=== PATIENT | male | born 1985 | race Caucasian/White ===

== ENCOUNTER 2016-07-12 12:54 | Outpatient (CLI) | payer BC ==
[2016-07-12 13:28] LABS: BUN/Creatinine Ratio 17.27; Calcium 7.4 mg/dL (8.4-10.2); Chloride 111.1 mmol/L (98-107); Potassium 5.2 mmol/L (3.6-5.0)
== END 2016-07-12 12:55 | disposition home or self-care (01) ==
LOC: LAB 12:54
PROVIDERS: ATTEND Internal Medicine Nephrology
DX: N18.3 Chronic kidney disease, stage 3 (moderate) (principal); E87.5 Hyperkalemia
CPT/HCPCS: 36415; 80048

== ENCOUNTER 2016-10-11 16:04 | Emergency (ER) | payer BC | END 2016-10-11 16:45 | disposition left against medical advice (07) | LOC: ED 16:04 | DX: Z53.21 Procedure and treatment not carried out due to patient leaving prior to being seen by health care provider (principal) ==

== ENCOUNTER 2019-05-23 18:35 | Emergency (ER) | payer BC ==
--- NOTE | 2019-05-23 21:00 | XRay Report ---
RIGHT FOOT 2 VIEWS INDICATION: PAIN/SWELLING R/T INJURY. COMPARISON: No relevant prior imaging study available. FINDINGS: There is fracture through the base of the fifth metatarsal. The fracture is approximately 2.4 cm from the proximal tip of the fifth metatarsal. Concerning for Barrett-type fracture. No additional fracture s are identified. IMPRESSION: 1. Barrett fracture at the proximal fifth metatarsal. Additional views would be useful to assess for a dditional fractures at the bases of the metatarsals. Signer Name: Milton Quinones MD Signed: 05/23/2019 8:56 PM Workstation Name: [id number]
[2019-05-23] MEDS ORDERED: HYDROcodone/ACETAMINOPHEN 5-325 MG TAB PO ONE (21:12)
--- NOTE | 2019-05-23 21:19 | Emergency Department Report ---
ED Lower Extremity HPI - General Chief Complaint: Extremity Injury, Lower Stated Complaint: TWISTED ANKLE/SWOLLEN Time Seen by Provider: 05/23/19 20:35 Source: patient Mode of arrival: Wheelchair Limitations: No Limitations - History of Present Illness Initial Comments: Mr. Quinones is a 33 y/o male who presents for right foot pain and swelling. Pt s/p fall and twist. pain is 8/10 moderate right lateral foot swelling. pt is non-weight bearing. pain is exacerbated by attempted weight bearing, pain is relieved by nothing, there is no deformity, no abrasion , laceration, or bleeding. MD Complaint: foot injury Onset/Timin -: days(s) Injury: Foot: Right (right lateral foot pain and swelling ) Type of Injury: eversion Place: street/outdoors Severity: moderate Severity scale (0 -10): 5 Improves With: nothing Worsens With: weight bearing, movement, palpation Context: fall Associated Symptoms: snap/pop sensation, swelling, tingling, unable to bear weight. denies: numbness - Related Data Previous Rx's Medication Instructions Recorded Last Taken Type HYDROcodone/APAP 5-325 [Pyote 1 each PO Q6HR PRN #12 tablet 05/23/19 Unknown Rx 5-325 mg TAB] Allergies Allergy/AdvReac Type Severity Reaction Status Date / Time No Known Allergies Allergy Unverified 05/23/19 19:40 ED Review of Systems ROS: Stated complaint: TWISTED ANKLE/SWOLLEN Other details as noted in HPI Constitutional: denies: chills, fever Eyes: denies: eye pain, eye discharge, vision change ENT: denies: ear pain, throat pain Respiratory: denies: cough, shortness of breath, wheezing Cardiovascular: denies: chest pain, palpitations Endocrine: no symptoms reported Gastrointestinal: denies: abdominal pain, nausea, diarrhea Genitourinary: denies: urgency, dysuria Musculoskeletal: joint swelling Skin: denies: rash, lesions Neurological: denies: headache, weakness, paresthesias Psychiatric: denies: anxiety, depression Hematological/Lymphatic: denies: easy bleeding, easy bruising ED Past Medical Hx - Past Medical History Previous Medical History?: Yes Hx Hypertension: Yes Hx Diabetes: Yes - Surgical History Past Surgical History?: No - Social History Smoking Status: Never Smoker Substance Use Type: None - Medications Home Medications: Home Medications Medication Instructions Recorded Confirmed Last Taken Type HYDROcodone/APAP 5-325 [Pyote 1 each PO Q6HR PRN #12 tablet 05/23/19 Unknown Rx 5-325 mg TAB] ED Physical Exam - General Limitations: No Limitations General appearance: alert, in no apparent distress - Head Head exam: Present: atraumatic, normocephalic - Eye Eye exam: Present: normal appearance, PERRL, EOMI - ENT ENT exam: Present: mucous membranes moist - Neck Neck exam: Present: normal inspection, full ROM. Absent: tenderness, lymphadenopathy - Respiratory Respiratory exam: Present: normal lung sounds bilaterally. Absent: respiratory distress, chest wall tenderness - Cardiovascular Cardiovascular Exam: Present: regular rate, normal rhythm, normal heart sounds. Absent: systolic murmur, diastolic murmur, rubs, gallop - GI/Abdominal GI/Abdominal exam: Present: soft, tenderness, normal bowel sounds. Absent: bruit, hernia - Rectal Rectal exam: Present: deferred - Extremities Exam Extremities exam: Present: normal inspection, tenderness (right dorsal lateral foot , no ecchymosis , no deformity, distal pulses intact pain with flexion and extension), normal capillary refill. Absent: pedal edema, joint swelling, calf tenderness - Expanded Lower Extremity Exam Right Foot/Toe exam: Present: tenderness, swelling, tenderness at base of 5th metatarsal. Absent: abrasion, laceration, ecchymosis, deformity, crepidus, dislocation, erythema, amputation, puncture wound, foreign body, calcaneal tenderness, nail avulsion, subungual hematoma Neuro vascular tendon exam: Absent: pulse deficit, abnormal cap refill, motor deficit, sensory deficit, tendon deficit Gait: Positive: unable to bear weight - Back Exam Back exam: Present: normal inspection, full ROM. Absent: tenderness, CVA tenderness (R), CVA tenderness (L), vertebral tenderness - Neurological Exam Neurological exam: Present: alert, oriented X3, CN II-XII intact, normal gait, reflexes normal. Absent: motor sensory deficit - Psychiatric Psychiatric exam: Present: normal affect, normal mood - Skin Skin exam: Present: warm, dry, intact, normal color. Absent: rash ED Course Vital Signs 05/23/19 05/23/19 05/23/19 18:38 18:45 19:00 Pulse Rate 93 H 89 93 H Respiratory 16 22 19 Rate Blood Pressure 149/105 151/101 135/74 O2 Sat by Pulse 97 98 97 Oximetry 05/23/19 19:15 Pulse Rate 93 H Respiratory 17 Rate Blood Pressure 157/106 O2 Sat by Pulse 98 Oximetry ED Lower Extremity MDM - Radiology Data Radiology results: report reviewed, image reviewed Findings [facility] [address] [place] [address] XRay Report Signed Patient: HAZEL ELI MR#: [id number] : 1985 Acct:[id number] Age/Sex: 33 / M ADM Date: 05/23/19 Loc: ED Attending Dr: Ordering Physician: IRIS FRANCISCO MD Date of Service: 05/23/19 Procedure(s): XR foot 2V RT Accession Number(s): [id number] cc: IRIS FRANCISCO MD Fluoro Time In Minutes: RIGHT FOOT 2 VIEWS INDICATION: PAIN/SWELLING R/T INJURY. COMPARISON: No relevant prior imaging study available. FINDINGS: There is fracture through the base of the fifth metatarsal. The fracture is approximately 2.4 cm from the proximal tip of the fifth metatarsal. Concerning for Barrett-type fracture. No additional fractures are identified. IMPRESSION: 1. Barrett fracture at the proximal fifth metatarsal. Additional views would be useful to assess for additional fractures at the bases of the metatarsals. Signer Name: Milton Quinones MD Signed: 05/23/2019 8:56 PM Workstation Name: [id number] Transcribed By: JAMES Dictated By: Milton Quinones MD Electronically Authenticated By: Milton Quinones MD Signed Date/Time: 05/23/192055 DD/ 53 TD/TT: - Medical Decision Making This is a closed right 5th metatarsal fracture nondisplaced. distal pulses intact. splint posterior short leg and crutches. splint check complete spacing is appropriate. plan: dc to home in stable condition rx hydrocodone , follow up with orthopedics in 2-3 days, pt verbalized agreement and understanding of discharge plan. Critical care attestation.: If time is entered above; I have spent that time in minutes in the direct care of this critically ill patient, excluding procedure time. ED Disposition Clinical Impression: Closed fracture of fifth metatarsal bone of right foot Qualifiers: Encounter type: initial encounter Fracture alignment: nondisplaced Qualified Code(s): S92.354A - Nondisplaced fracture of fifth metatarsal bone, right foot, initial encounter for closed fracture Disposition: TO HOME OR SELFCARE Is pt being admited?: No Does the pt Need Aspirin: No Condition: Stable Instructions: Foot Fracture in Adults (ED) Prescriptions: HYDROcodone/APAP 5-325 [Pyote 5-325 mg TAB] 1 each PO Q6HR PRN #12 tablet PRN Reason: Pain Referrals: MIGUEL ÁNGEL OLIVARES MD [Staff Physician] - 3-5 Days Forms: Work/School Release Form(ED) Time of Disposition: 22:33
[2019-05-23 22:53] VITALS: BP 167/72
== END 2019-05-23 22:52 | disposition home or self-care (01) ==
LOC: ED 18:35
DX: S92.354A Nondisplaced fracture of fifth metatarsal bone, right foot, initial encounter for closed fracture (principal); I10 Essential (primary) hypertension; E11.9 Type 2 diabetes mellitus without complications; Z79.899 Other long term (current) drug therapy; X50.1XXA Overexertion from prolonged static or awkward postures, initial encounter; Y93.89 Activity, other specified; Y92.89 Other specified places as the place of occurrence of the external cause; Y99.8 Other external cause status